=== PATIENT | male | born 1965 | race Caucasian/White ===

== ENCOUNTER 2020-04-15 17:19 | Emergency (ER) | payer BC ==
[~2020-04-15] VITALS: Ht 188 cm; Wt 145.4 kg
[2020-04-15] MEDS ORDERED: bacitracin 15gm ointment TP ONE (19:40)
[2020-04-15] MEDS ORDERED: LIDOcaine 1% W/epiNEPHrine 1:200,000 10ml vial IJ ONE (19:40)
[2020-04-15] MEDS ORDERED: ceFAZolin 1gm IM kit IM ONE (20:05)
[2020-04-15] MEDS ORDERED: TETanus/Pertussis (Acell)/Diphther VAC/PF (Tdap-Adult) 0.5ml syringe IMVAC ONE (20:15)
--- NOTE | 2020-04-15 20:44 | NUR ---
Provider at bedside for laceration repair.
[2020-04-15] MEDS ORDERED: HYDR-3965 PO (20:59)
[2020-04-15] MEDS ORDERED: CEPH250T PO (20:59)
[2020-04-15 21:16] VITALS: BP 136/76
== END 2020-04-15 21:17 | disposition home or self-care (01) ==
LOC: ER 17:20
DX: S61.212A Laceration without foreign body of right middle finger without damage to nail, initial encounter (principal); Z79.2 Long term (current) use of antibiotics; Z79.899 Other long term (current) drug therapy; W31.89XA Contact with other specified machinery, initial encounter; Y93.89 Activity, other specified; Y92.89 Other specified places as the place of occurrence of the external cause; Y99.8 Other external cause status
CPT/HCPCS: 12001; 73140; 90471; 90715; 96372; 99284; J0690; 99283

== ENCOUNTER 2021-05-19 13:52 | Emergency (ER) | payer BC ==
[~2021-05-19] VITALS: Ht 188 cm; Wt 154.6 kg
[2021-05-19 14:22] LABS: BASOPHILS # (AUTO) 0.1 X10'3 (0-0.2); BASOPHILS % (AUTO) 0.7 % (0-1); EOSINOPHILS # (AUTO) 0.5 X10'3 (0-0.9); EOSINOPHILS % (AUTO) 5.9 % (0-6); HEMATOCRIT 40.5 % (42.0-52.0); HEMOGLOBIN 13.7 g/dl (14.0-17.9); LYMPHOCYTES # (AUTO) 2.4 X10'3 (1.1-4.8); MEAN CORPUSCULAR HEMOGLOBIN 29.7 PG (27.0-31.0); MEAN CORPUSCULAR HGB CONC 33.7 g/dL (33.0-36.5); MEAN PLATELET VOLUME 7.6 FL (7.4-10.4); MONOCYTES # (AUTO) 0.6 X10'3 (0-0.9); MONOCYTES % (AUTO) 7.5 % (2-12); NEUTROPHILS # (AUTO) 4.4 X10'3 (1.8-7.7); NEUTROPHILS % (AUTO) 55.9 % (42-75); PLATELET COUNT 243 X10'3 (140-440); RED BLOOD COUNT 4.61 X10'6 (4.70-6.10); RED CELL DISTRIBUTION WIDTH 13.5 % (11.5-14.5); WHITE BLOOD COUNT 7.9 X10'3 (4.5-11.0)
[2021-05-19 14:33] LABS: APTT 26 SECONDS (22-32)
[2021-05-19 14:39] LABS: ALANINE AMINOTRANSFERASE 38 U/L (12-78); ALBUMIN 3.7 G/DL (3.4-5.0); ALBUMIN/GLOBULIN RATIO 1.1 (1.1-1.5); ALKALINE PHOSPHATASE 119 IU/L (46-116); ANION GAP 9 (8-16); ASPARTATE AMINO TRANSFERASE 23 U/L (10-37); BILIRUBIN,TOTAL 0.3 MG/DL (0.1-1.0); BLOOD UREA NITROGEN 12 MG/DL (7-18); BUN/CREATININE RATIO 11.8 (5.4-32.0); CALCIUM 9.2 MG/DL (8.5-10.1); CHLORIDE 103 MMOL/L (99-107); CREATININE 1.02 MG/DL (0.60-1.10); GLUCOSE 126 MG/DL (70-104); POTASSIUM 3.8 MMOL/L (3.5-5.1); SODIUM 139 MMOL/L (135-145); TOTAL CARBON DIOXIDE 26.7 MMOL/L (24-32); TOTAL PROTEIN 7.2 G/DL (6.4-8.2); eGFR 76 ML/MIN
[2021-05-19] MEDS ORDERED: MESSAGE TO NURSING PO NR (14:45)
[2021-05-19] MEDS ORDERED: iohexol 350MG/ML 100ml bottle IV ONE (14:57)
[2021-05-19] MEDS ORDERED: TELM80TA9 PO (15:33)
[2021-05-19] MEDS ORDERED: ATOR20TA66 PO (15:33)
[2021-05-19] MEDS ORDERED: AMLO5TAB16 PO (15:33)
[2021-05-19] MEDS ORDERED: DEXL60CA6 PO (15:33)
[2021-05-19] MEDS ORDERED: ZOLP10TA PO (15:33)
--- NOTE | 2021-05-19 18:31 | NUR ---
resume care from lambert RN, patient alert and oriented, placed on a cardic monitor, bed in lowest position.
[2021-05-19 18:32] VITALS: BP_DIAS 73
[2021-05-19] MEDS ORDERED: CITA40TA17 PO (22:06)
[2021-05-19] MEDS ORDERED: CETI-91 PO (22:08)
[2021-05-19] MEDS ORDERED: atorvastatin 20mg tablet PO ONE (23:01)
[2021-05-19] MEDS ORDERED: amLODIPine 5mg tablet PO ONE (23:01)
[2021-05-19] MEDS ORDERED: pantoprazole 40mg Tablet.DR PO ONE (23:01)
[2021-05-19] MEDS ORDERED: citalopram 20mg tablet PO ONE (23:02)
[2021-05-19] MEDS ORDERED: cetirizine 10mg tablet PO ONE (23:02)
[2021-05-19] MEDS ORDERED: zolpidem 5mg tablet PO ONE (23:02)
[2021-05-19] MEDS ORDERED: losartan 50mg tablet PO ONE (23:03)
[2021-05-19 23:24] VITALS: BP_SYST 145
--- NOTE | 2021-05-19 23:32 | NUR ---
flight crew here to take patient
--- NOTE | 2021-05-19 23:32 | NUR ---
report given to RN at [facility]
== END 2021-05-20 00:09 | disposition short-term general hospital (02) ==
LOC: ER 13:52
DX: G93.9 Disorder of brain, unspecified (principal); R20.0 Anesthesia of skin; R53.1 Weakness; E78.00 Pure hypercholesterolemia, unspecified; I10 Essential (primary) hypertension; E11.9 Type 2 diabetes mellitus without complications; Z79.899 Other long term (current) drug therapy
CPT/HCPCS: 36415; 70450; 70496; 70498; 71045; 80053; 84484; 85025; 85610; 85730; 93005; 99285; Q9967